=== PATIENT | female | born 1950 | race Caucasian/White ===

== ENCOUNTER 2017-08-21 07:48 | Inpatient (IN) | payer MEDICARE, BC ==
[~2017-08-21] VITALS: Ht 165.1 cm; Wt 51.3 kg
--- NOTE | 2017-08-21 07:55 | NUR ---
AAOX3 BIB C/O EPIGASTRIC PAIN SINCE LAST NIGHT, +NAUSEA BUT DENIES VOMITING/DIARRHEA. SKIN IS WARM AND DRY. RR IS EVEN AND UNLABORED WITH NAD NOTED. PLACED ON THE MONITOR. WILL CONTINUOUSLY MONITOR THE PATIENT. AWAITING MD FOR EVAL.
--- NOTE | 2017-08-21 08:20 | NUR ---
DR LOERA AT BS FOR EVAL.
[2017-08-21] MEDS ORDERED: ONDANSETRON HCL/PF 4 MG/2 ML VIAL ONE (08:28)
[2017-08-21] MEDS ORDERED: HYDROMORPHONE 1 MG/1 ML DISP.SYRIN ONE ×2 (08:29→10:30)
[2017-08-21] MEDS ORDERED: ONDANSETRON HCL/PF 4 MG/2 ML VIAL IVP ONE (08:30)
[2017-08-21] MEDS ORDERED: IV NS 0.9% 1,000 ML BAG IV ONE (08:30)
[2017-08-21] MEDS ORDERED: HYDROMORPHONE INJ 2 MG/ML DISP.SYRIN IV ONE (08:30)
[2017-08-21 08:46] LABS: BASOPHILS # (AUTO) 0.1 /CMM (0.0-0.2); BASOPHILS % (AUTO) 1.3 % (0.0-2.0); EOSINOPHILS # (AUTO) 0.2 /CMM (0.0-0.7); EOSINOPHILS % (AUTO) 1.9 % (0.0-6.0); HEMATOCRIT 47 % (33-45); HEMOGLOBIN 15.9 g/dL (11.5-14.8); LYMPHOCYTES # (AUTO) 1.4 /CMM (0.8-4.8); LYMPHOCYTES % (AUTO) 15.9 % (20.0-44.0); MEAN CORPUSCULAR HEMOGLOBIN 31 PG (26.0-33.0); MEAN CORPUSCULAR HGB CONC 34 g/dl (31.0-36.0); MEAN CORPUSCULAR VOLUME 91 fL (82-100); MONOCYTES # (AUTO) 0.5 /CMM (0.1-1.30); MONOCYTES % (AUTO) 5.4 % (2.0-12.0); NEUTROPHILS # (AUTO) 6.7 /CMM (1.8-8.9); NEUTROPHILS % (AUTO) 75.5 % (43.0-81.0); PLATELET COUNT (AUTO) 284 /CMM (150-450); RDW COEFFICIENT OF VARIATION 12.8 (11.5-15.0); RED BLOOD CELL COUNT(AUTO) 5.16 MIL/uL (4.0-5.2); WHITE BLOOD COUNT (AUTO) 8.9 K/uL (4.3-11.0)
[2017-08-21 08:58] LABS: TROPONIN I < 0.017 ng/mL (0.00-0.056)
[2017-08-21 09:09] LABS: ALANINE AMINOTRANSFERASE 37 U/L (12-78); ALBUMIN 4.1 g/dL (3.4-5.0); ALKALINE PHOSPHATASE 93 U/L (46-116); ASPARTATE AMINOTRANSFERASE 29 U/L (15-37); BILIRUBIN,TOTAL 0.4 mg/dL (0.2-1.0); CARBON DIOXIDE 25 mmol/L (21-32); CHLORIDE 102 mmol/L (98-107); CREATININE 0.9 mg/dL (0.6-1.3); GLUCOSE 104 mg/dL (74-106); LIPASE 168 U/L (73-393); POTASSIUM 4.5 mmol/L (3.5-5.1); SODIUM SERUM 138 mmol/L (136-145); TOTAL PROTEIN, SERUM 8.3 g/dL (6.4-8.2); UREA NITROGEN, BLOOD 12 mg/dL (7-18)
--- NOTE | 2017-08-21 10:06 | NUR ---
PANEL ON-CALL PAGED
[2017-08-21] MEDS ORDERED: IV NS 0.9% 1,000 ML IV PRN ×2 (10:12→22:00)
--- NOTE | 2017-08-21 10:23 | NUR ---
REPORT GIVEN TO ERIS OSMAN FOR EMMANUEL MS [id number]
[2017-08-21] MEDS ORDERED: OXYM5TAB PO (10:27)
[2017-08-21] MEDS ORDERED: MODA100T14 PO (10:27)
[2017-08-21] MEDS ORDERED: HYDR-548 PO (10:27)
[2017-08-21] MEDS ORDERED: IV NS 0.9% 1,000 ML IV ONE (10:30)
[2017-08-21] MEDS ORDERED: MAG HYDROX/AL HYDROX/SIMETH 30 ML UDC PO PRN (10:30)
[2017-08-21] MEDS ORDERED: HYDROCODONE/APAP 5/325MG 1 EACH TABLET PO PRN (10:30)
[2017-08-21] MEDS ORDERED: ZOLPIDEM TARTRATE 5 MG TABLET PO PRN (10:30)
[2017-08-21] MEDS ORDERED: MAGNESIUM HYDROXIDE 30 ML UDC PO PRN (10:30)
[2017-08-21] MEDS ORDERED: ACETAMINOPHEN 325 MG TABLET PO PRN (10:30)
[2017-08-21] MEDS ORDERED: ENOXAPARIN SODIUM 40 MG/0.4 ML DISP.SYRIN SQ SCH (10:30)
[2017-08-21] MEDS ORDERED: HYDROMORPHONE 1 MG/1 ML DISP.SYRIN IV ONE (10:30)
[2017-08-21] MEDS ORDERED: Z GUARD REMEDY 2 OZ OINT TP PRN (10:30)
[2017-08-21] MEDS ORDERED: MORPHINE SULFATE INJ 2 MG/ML DISP.SYRIN IV PRN (10:30)
--- NOTE | 2017-08-21 11:00 | NUR ---
MS RN OPENING NOTES RECEIVED PATIENT IN STABLE CONDITION. IN NO APPARENT DISTRESS. CALL LIGHT IS WITHIN REACH. BEDSIDE RAILS ARE UP X2 . BED IS LOCKED AND LOWERED. WILL CONTINUE TO MONITOR.
[2017-08-21] MEDS: MORPHINE SULFATE INJ 4 MG/ML DISP.SYRIN IV PRN (11:21)
[2017-08-21] MEDS: ONDANSETRON HCL/PF 4 MG/2 ML VIAL IVP PRN ×2 (12:00→23:21)
[2017-08-21] MEDS ORDERED: HYDROMORPHONE 1 MG/1 ML DISP.SYRIN IV PRN (14:00)
[2017-08-21 15:31] LABS: CALCIUM, SERUM 9.5 mg/dL (8.5-10.1)
[2017-08-21 16:00] VITALS: BP 133/79
[2017-08-21] MEDS: LORAZEPAM INJ 2 MG/ML VIAL IV PRN (16:39)
[2017-08-21 17:11] LABS: MEAN CORPUSCULAR VOLUME 91 fL (82-100); MONOCYTES # (AUTO) 0.1 /CMM (0.1-1.30)
[2017-08-21 17:13] LABS: BASOPHILS % (AUTO) 0.1 % (0.0-2.0); EOSINOPHILS # (AUTO) 0.1 /CMM (0.0-0.7); EOSINOPHILS % (AUTO) 0.4 % (0.0-6.0); HEMATOCRIT 52 % (33-45); HEMOGLOBIN 17.4 g/dL (11.5-14.8); LYMPHOCYTES # (AUTO) 0.5 /CMM (0.8-4.8); LYMPHOCYTES % (AUTO) 3.3 % (20.0-44.0); MEAN CORPUSCULAR HEMOGLOBIN 30 PG (26.0-33.0); MEAN CORPUSCULAR HGB CONC 33 g/dl (31.0-36.0); MONOCYTES % (AUTO) 0.7 % (2.0-12.0); NEUTROPHILS # (AUTO) 13.2 /CMM (1.8-8.9); NEUTROPHILS % (AUTO) 95.5 % (43.0-81.0); PLATELET COUNT (AUTO) 225 /CMM (150-450); RDW COEFFICIENT OF VARIATION 12.6 (11.5-15.0); RED BLOOD CELL COUNT(AUTO) 5.73 MIL/uL (4.0-5.2); WHITE BLOOD COUNT (AUTO) 13.8 K/uL (4.3-11.0)
[2017-08-21 17:21] LABS: CARBON DIOXIDE 25 mmol/L (21-32); CHLORIDE 105 mmol/L (98-107); CREATININE 0.8 mg/dL (0.6-1.3); GLUCOSE 110 mg/dL (74-106); POTASSIUM 4.3 mmol/L (3.5-5.1); SODIUM SERUM 141 mmol/L (136-145); UREA NITROGEN, BLOOD 12 mg/dL (7-18)
--- NOTE | 2017-08-21 19:00 | NUR ---
MS RN CLOSING NOTES PATIENT IS RESTING IN BED. IN NO APPARENT DISTRESS. VITAL SIGNS ARE WNL. BEDSIDE RAILS ARE UP X2 . BED IS LOCKED AND LOWERED. WILL ENDORSE CARE TO RANGE RIDER NURSE FOR EMMANUEL.
--- NOTE | 2017-08-21 19:30 | NUR ---
MS RN NOTES RECEIVED ON BED A/O X3,DROWSY FROM ATIVAN 1MG IV AT 1639,BREATHING REGULAR, NOT IN ANY FORM OF DISTRESS.FALL PRECAUTION OBSERVED,BED ALARM TRIGGERED,BED ON LOW POSITION AND LOCK.CALL LIGHT IN REACH,NEEDS ANTICIPATED.
[2017-08-21 20:00] VITALS: BP 134/83
--- NOTE | 2017-08-21 20:00 | NUR ---
MS RN NOTES MD VISIT SEEN AND EXAMINED BY DR SWEET,WITH NEW ORDERS NOTED AND CARRIED OUT.
[2017-08-21] MEDS ORDERED: IV NS 0.9% 500 ML IV ONE (20:30)
--- NOTE | 2017-08-21 21:30 | NUR ---
MS RN NOTES IV NS BOLUS COMPLETED.NO SOB NOTED.VITALS AT 2239 ARE FOLLOWS BP-139/77,PULSE-122,RR-18,ORAL TEMP-98.2,O2 SAT 95% ON ROOM AIR.DR MICKI LILLY.
--- NOTE | 2017-08-21 21:45 | NUR ---
MS RN NOTES NS 500ML BOLUS STARTED ORDERED Addendum: 08/21/17 at 2330 by NOEMI STEWART RN ABOVE IV BOLUS STARTED AT 2030
--- NOTE | 2017-08-21 22:33 | NUR ---
MS RN NOTES EKG,CHEST X-RAY IN THE MORNING FOR POSSIBLE SURGERY TOMORROW.DR SWEET WILL CALL REGARDING PLAN.
--- NOTE | 2017-08-21 22:33 | NUR ---
MS RN NOTES DR SWEET CALLED,CHARGE NURSE SONYA SPOKE TO HIM WITH ORDERS NOTED AND CARRIED OUT.
[2017-08-21 22:39] VITALS: BP 139/77
[2017-08-21 22:43] VITALS: BP 139/77
[2017-08-21] MEDS ORDERED: VANCOMYCIN 1 GM VIAL ONE (22:45)
[2017-08-21] MEDS ORDERED: PIPERACILLIN /TAZOBACTAM 3.375 G VIAL IV ONE (22:45)
[2017-08-21] MEDS ORDERED: VANCOMYCIN 1 GM in IV D5W 250 ML IV SCH ×2 (23:00→23:30)
--- NOTE | 2017-08-21 23:21 | NUR ---
MS RN NOTES VOMITED BLACK COLOR VOMITUS ABOUT 175ML.ZOFRAN 4IV GIVEN ORDERED.
--- NOTE | 2017-08-21 23:33 | NUR ---
MS RN NOTES NPO STATUS.STARTED ON VANCOMYCIN 1 GM IVPB X 1 DOSE ORDERED.
[2017-08-22] VITALS (37 sets, daily range): BP systolic 86–138; BP diastolic 53–91
[2017-08-22] MEDS: PIPERACILLIN /TAZOBACTAM 3.375 G in IV D5W 50 ML IV SCH ×4 (00:01→17:42)
[2017-08-22] MEDS: MORPHINE SULFATE INJ 4 MG/ML DISP.SYRIN IV PRN ×2 (00:42→04:42)
[2017-08-22 01:53] LABS: BASOPHILS % (AUTO) 0.1 % (0.0-2.0); EOSINOPHILS % (AUTO) 0.4 % (0.0-6.0); HEMATOCRIT 48 % (33-45); HEMOGLOBIN 16.8 g/dL (11.5-14.8); LYMPHOCYTES # (AUTO) 0.6 /CMM (0.8-4.8); LYMPHOCYTES % (AUTO) 8.1 % (20.0-44.0); MEAN CORPUSCULAR HEMOGLOBIN 31 PG (26.0-33.0); MEAN CORPUSCULAR HGB CONC 35 g/dl (31.0-36.0); MEAN CORPUSCULAR VOLUME 90 fL (82-100); MONOCYTES # (AUTO) 0.4 /CMM (0.1-1.30); MONOCYTES % (AUTO) 5.3 % (2.0-12.0); NEUTROPHILS # (AUTO) 6.3 /CMM (1.8-8.9); NEUTROPHILS % (AUTO) 86.1 % (43.0-81.0); PLATELET COUNT (AUTO) 310 /CMM (150-450); RED BLOOD CELL COUNT(AUTO) 5.36 MIL/uL (4.0-5.2); WHITE BLOOD COUNT (AUTO) 7.3 K/uL (4.3-11.0)
[2017-08-22 02:05] LABS: CALCIUM, SERUM 8.2 mg/dL (8.5-10.1); CARBON DIOXIDE 26 mmol/L (21-32); CHLORIDE 105 mmol/L (98-107); CREATININE 0.9 mg/dL (0.6-1.3); GLUCOSE 166 mg/dL (74-106); POTASSIUM 3.8 mmol/L (3.5-5.1); SODIUM SERUM 141 mmol/L (136-145); UREA NITROGEN, BLOOD 15 mg/dL (7-18)
[2017-08-22 02:09] LABS: MAGNESIUM 1.7 mg/dL (1.8-2.4); PHOSPHORUS 3.9 mg/dL (2.5-4.9)
--- NOTE | 2017-08-22 02:30 | NUR ---
MS RN NOTES ST 130 ON TELE MONITOR THIS TIME.PATIENT ASLEEP.
--- NOTE | 2017-08-22 02:30 | NUR ---
MS RN NOTES NEW SALINE LOCK PLACE ON LEFT FOREARM # 22,IVF INFUSING.
--- NOTE | 2017-08-22 02:35 | NUR ---
MS RN NOTES REPORTED BY TRANSPORTATION SECURITY OFFICER TO CHARGE NURSE SONYA,LACTIC ACID 2.4,JOBY DURBIN ACNP MADE AWARE AND CALL BACK. WITH ORDER TO REPEAT LACTIC ACID AT 6 AM.CONTINUE PRESENT IVF
--- NOTE | 2017-08-22 03:00 | NUR ---
OPERATIVE SUPERVISOR NOTES DR SWEET CALLED.MADE AWARE OF PATIENT STATUS ESPECIALLY HIGH HEART RATE AND VOMITUS.WITH ORDER TO TRANSFER PATIENT TO ICU FOR FURTHER CARE AND MANAGEMENT.
--- NOTE | 2017-08-22 03:05 | NUR ---
MS RN NOTES DR SWEET CALLED NURSING CUTTING ROOM SUPERVISOR FOR TRANSFER,WITH ROOM 255.
--- NOTE | 2017-08-22 03:30 | NUR ---
HOSPITAL RECEPTIONIST NOTES TRANSFERRED TO ICU VIA ACLS PROTOCOL ROOM 255.REPORT GIVEN TO ARCELIA SCHULTE.
--- NOTE | 2017-08-22 03:30 | NUR ---
BOX OFFICE CLERK PT TRANSFERRED FROM BY NOEMI SCHULTE. PT IS A/A/O X3, EXHIBITING ANXIETY. PT IS ON O2 2L NC. LUNG SOUNDS CLEAR. BOWEL SOUNDS ABSENT, VERIFIED BY TWO RN'S. INCONTINENT. IV PATENT AND INTACT. BED IN LOW LOCKED POSITION. CALL LIGHT WITHIN REACH. WILL CONTINUE TO CLOSELY MONITOR.
--- NOTE | 2017-08-22 04:10 | NUR ---
SENIOR PROGRAM ANALYST KRUEGER ORDER RECEIVED. KRUEGER INSERTED.
[2017-08-22] MEDS ORDERED: PIPERACILLIN /TAZOBACTAM 3.375 G VIAL IV ONE (04:59)
[2017-08-22] MEDS: ONDANSETRON HCL/PF 4 MG/2 ML VIAL IVP PRN (05:35)
--- NOTE | 2017-08-22 06:44 | NUR ---
BARREL BANDER RECEIVED CALL FROM DR ZEPEDA TO INSERT NGT PRIOR TO OR. EXPLAINED TO PT THE NEED FOR A NGT, PT REFUSED. SAYS SHE WANTS TO SEE THE DOCTOR AND WOULD PREFER BEING ASLEEP. PT STATES SHE HAS ALOT OF SINUS PROBLEMS AND IS REFUSING THE NGT AT THIS TIME. WILL ENDORSE TO ONCOMING STAFF.
[2017-08-22] MEDS ORDERED: ANESTHESIA TRAY IN PYXIS 1 EA TRAY MC ONE (07:40)
--- NOTE | 2017-08-22 07:45 | NUR ---
PATIENT SEEN AWAKE AND ORIENTED. SURGEON AND ANESTHESIOLOGIST AT BEDSIDE-SPEAKING TO PATIENT REGARDING PROCEDURE-FOR EXPLOR LAP WITH POSSIBLE BOWEL RESECTION. PATIENT AGREED TO NGT INSERTION-ATTEMPTED PLACEMENT-VERIFIED WITH PLACEMENT IN STOMACH WITH AUSCULTATION-UNABLE TO VERIFY PLACEMENT BY GUTIERREZ, MILLING MACHINE SET UP OPERATOR. CONNECTED TO LOW SUCTION WITH NO GASTRIC RESIDUALS NOTED. WIL,SOFA BACK UPHOLSTERER HERE TO FOLDED CLOTH TAPER PATIENT TO OR. MADE AWARE ABOUT NGT-STATED THAT PLACEMENT WILL BE VERIFIED IN OR.
[2017-08-22] MEDS ORDERED: HYDROMORPHONE INJ 2 MG/ML DISP.SYRIN ONE (07:50)
[2017-08-22] MEDS ORDERED: SUCCINYLCHOLINE CHLORIDE 20 MG/ML VIAL ONE (07:50)
[2017-08-22] MEDS ORDERED: ROCURONIUM BROMIDE 50 MG/5 ML ONE (07:51)
--- NOTE | 2017-08-22 07:55 | NUR ---
PATIENT TO OR.
--- NOTE | 2017-08-22 08:30 | NUR ---
WIL FROM OR CALLED AND STATED THAT NGT PLACEMENT IN STOMACH-VERIFIED BY DR. NATHAN-SOCIAL SECURITY BENEFITS INTERVIEWER.
[2017-08-22] MEDS ORDERED: MIDAZOLAM HCL 2 MG/2ML VIAL ONE (08:32)
[2017-08-22] MEDS ORDERED: FEE PK DOSING 1 MIN EA MC ONE (08:34)
[2017-08-22] MEDS ORDERED: BUPIVACAINE 0.5 % PF 150 MG/30 ML VIAL ONE (09:20)
--- NOTE | 2017-08-22 10:15 | NUR ---
PATIENT RECEIVED FROM LICENSED LIFE AND HEALTH AGENT-S/P EXPLOR LAP , LYSIS OF ADHESIONS. EASILY AROUSABLE TO NAME AND TOUCH. SR 90'S ON MONITOR. SBP>100. MIDLINE INCISION COVERED WITH ABDOMINAL BINDER, NO SIGNS OF BLEEDING NOTED. AFEBRILE. POST OP ORDERS CARRRIED OUT.
--- NOTE | 2017-08-22 10:16 | NUR ---
Patient in surgery as advised by attending nurse (Cherry), 8:55am
--- NOTE | 2017-08-22 10:30 | NUR ---
NGT CONNECTED TO LOW SUCTION-MINIMAL BROWNISH OUTPUT.
[2017-08-22] MEDS: Magnesium 1GM/D5W 100ML PREMIX 100 ML IV SCH ×2 (10:32→11:31)
[2017-08-22] MEDS: PANTOPRAZOLE 40 MG VIAL IV SCH (10:32)
[2017-08-22] MEDS: VANCOMYCIN 0.75 GM in IV D5W 250 ML IV SCH ×2 (10:33→22:38)
[2017-08-22] MEDS ORDERED: HYDROCODONE/APAP 7.5/325MG 1 EACH TABLET PO PRN (11:00)
[2017-08-22] MEDS: IV LR 1000 ML 1,000 ML IV PRN ×2 (11:29→22:38)
[2017-08-22] MEDS: HYDROMORPHONE 1 MG/1 ML DISP.SYRIN IV PRN ×2 (11:56→22:24)
--- NOTE | 2017-08-22 12:00 | NUR ---
PATIENT DOZING ON AND OFF. MOANING AT TIMES-DILAUDID 1 MG IVP GIVEN ORDERED PRN. BP REMAINS STABLE.
--- NOTE | 2017-08-22 14:00 | NUR ---
2D ECHO DONE. NO VERBAL COMPLAINTS OF PAIN AT THIS TIME.
--- NOTE | 2017-08-22 18:00 | NUR ---
VITAL SIGNS STABLE. STILL DOZING INTERMITENTLY. AFEBRILE. NGT WITH MINIMAL BROWNISH OUTPUT CONNECTED TO LIWS. MAINTAINED NPO AT THIS TIME. NO SIGNS OF BLEEDING AT SURGICAL SITE.
--- NOTE | 2017-08-22 19:20 | NUR ---
REGIONAL TRAINING MANAGER INITIAL NOTE RECEIVED REPORT FROM NAMRATA SCHULTE. PT IN BED. SLEEPING BUT EASILY AROUSABLE. PT IS A/O X4. LUNG SOUNDS CLEAR. BOWEL SOUNDS HYPOACTIVE FOLLOWING EXPLORATORY LAPAROTOMY BY DR ZEPEDA. ABDOMINAL BINDER INTACT, NO BLEEDING NOTED. LEFT NARE NGT INTACT CONNECTED TO LIS WITH MINIMAL OUTPUT. KRUEGER INTACT AND DRAINING FERNANDO URINE. IV PATENT AND INTACT. PULSES PRESENT. PT REPOSITIONED FOR COMFORT. BED IN LOW LOCKED POSITION. CALL LIGHT WITHIN REACH. WILL CONTINUE TO MONITOR.
[2017-08-23] VITALS (15 sets, daily range): BP systolic 96–123; BP diastolic 56–86
[2017-08-23] MEDS: PIPERACILLIN /TAZOBACTAM 3.375 G in IV D5W 50 ML IV SCH ×4 (00:02→17:17)
[2017-08-23] MEDS: HYDROMORPHONE 1 MG/1 ML DISP.SYRIN IV PRN ×9 (01:31→21:57)
[2017-08-23 04:43] LABS: BASOPHILS % (AUTO) 0.4 % (0.0-2.0); EOSINOPHILS # (AUTO) 0.2 /CMM (0.0-0.7); HEMATOCRIT 35 % (33-45); HEMOGLOBIN 12.1 g/dL (11.5-14.8); LYMPHOCYTES # (AUTO) 0.7 /CMM (0.8-4.8); LYMPHOCYTES % (AUTO) 9.1 % (20.0-44.0); MEAN CORPUSCULAR HEMOGLOBIN 32 PG (26.0-33.0); MEAN CORPUSCULAR HGB CONC 35 g/dl (31.0-36.0); MEAN CORPUSCULAR VOLUME 91 fL (82-100); MONOCYTES # (AUTO) 0.4 /CMM (0.1-1.30); MONOCYTES % (AUTO) 5.6 % (2.0-12.0); NEUTROPHILS # (AUTO) 6.5 /CMM (1.8-8.9); NEUTROPHILS % (AUTO) 82.9 % (43.0-81.0); PLATELET COUNT (AUTO) 206 /CMM (150-450); RDW COEFFICIENT OF VARIATION 13.4 (11.5-15.0); RED BLOOD CELL COUNT(AUTO) 3.85 MIL/uL (4.0-5.2); WHITE BLOOD COUNT (AUTO) 7.9 K/uL (4.3-11.0)
[2017-08-23 05:05] LABS: BILIRUBIN,TOTAL 0.6 mg/dL (0.2-1.0); CREATININE 0.9 mg/dL (0.6-1.3); MAGNESIUM 2.2 mg/dL (1.8-2.4); PHOSPHORUS 2.6 mg/dL (2.5-4.9); POTASSIUM 4.2 mmol/L (3.5-5.1); TOTAL PROTEIN, SERUM 5.5 g/dL (6.4-8.2)
--- NOTE | 2017-08-23 07:15 | NUR ---
HEALTH PROFESSOR RECEIVED PATIENT AWAKE SITTING ON BED WITH ON GOING IVF ON ROOM AIR SATURATING 95% NO DYSPNEA NOTED PLACED ON NPO WITH NGT CONNECTED TO LOW INTERMITTENT SUCTIONING DRAINING TO BROWNISH SECRETION 10 ML AMOUNT WITH MID ABDOMINAL INCISION, DRESSING DRY AND INTACT PAIN NOTED, PAIN MEDICATION GIVEN PRN KRUEGER CATHETER DRAINING TO YELOOWISH URINE MODERATE IN AMOUNT
[2017-08-23] MEDS: PANTOPRAZOLE 40 MG VIAL IV SCH (07:46)
[2017-08-23] MEDS: IV D5/ 0.9% NACL 1,000 ML IV PRN (08:09)
--- NOTE | 2017-08-23 10:05 | NUR ---
DIRECTOR OF STRATEGIC PROGRAMS SEEN EARLIER BY KATHY DIAZ AND MICKI WITH NEW ORDERS MADE AND CARRIED OUT KRUEGER CATHETER REMOVED AND NGT REMOVED WELL MONITORED CLOSELY ASSISTED PATIENT TO AMBULATE IN THE ROOM PAIN OVER HER ABDOMEN WHEN WALKING
--- NOTE | 2017-08-23 10:15 | NUR ---
MS CLINIC SUPERVISOR NOTES received report from ICU nurse, patient is alert and oriented x 4, verbally responsive and able to make needs known. No complaint of pain or discomfort noted. No SOB or distress noted. Patient IV intact and patent. In stable condition at this time. Will continue to monitor.
[2017-08-23] MEDS: VANCOMYCIN 0.75 GM in IV D5W 250 ML IV SCH ×2 (11:09→23:28)
--- NOTE | 2017-08-23 18:30 | NUR ---
ms rn notes dr. Ortiz on site came seen the patient and informed regarding patient if he wants to keep patient NPO and per MD to start patient on clear liquid diet. All orders carried out and noted.
--- NOTE | 2017-08-23 19:18 | NUR ---
ms rn closing notes All needs provided, attended, and anticipated. Kept patient clean and comfortable in bed, call light with in patient reach, endorsed to next shift RN to continue care.
--- NOTE | 2017-08-23 19:20 | NUR ---
MS/RN OPENING NOTES PT RECEIVED SITTING UP IN BED, HOB ELEVATED. ON 2L O2 VIA NC, BREATHING EVEN AND UNLABORED. DOZING INTERMITTENTLY. A/OX4. IN NO APPARENT DISTRESS. NO S/S OF SOB OR PAIN NOTED. APPEARS COMFORTABLE. PT WITH ABDOMINAL BINDER IN PLACE. LFA IV RUNNING IVF ORDERED. NO S/S OF INFILTRATION NOTED. BED IN LOW/LOCKED POSITION WITH CALL LIGHT IN REACH. SIDE RAILS UPX2. WILL CONTINUE TO MONITOR
[2017-08-23] MEDS ORDERED: VANCOMYCIN 1 GM VIAL ONE (23:15)
--- NOTE | 2017-08-23 23:32 | NUR ---
MS/RN NOTES SCHEDULED VANCOMYCIN NOT IN PATIENT'S CASSETTE. CALLED ICU, NOT THERE EITHER. ORACLE APPLICATIONS DEVELOPER OVERRODE 1G OF VANCO IN 250ML D5W. PREMIXED 0.75G AND VERIFIED DOSING WITH ANOTHER RN. ADMINISTERED ORDERED.
[2017-08-24 00:30] VITALS: BP 118/73
[2017-08-24] MEDS: PIPERACILLIN /TAZOBACTAM 3.375 G in IV D5W 50 ML IV SCH ×4 (00:34→17:34)
[2017-08-24] MEDS: HYDROMORPHONE 1 MG/1 ML DISP.SYRIN IV PRN ×5 (00:40→20:22)
[2017-08-24 06:25] LABS: BASOPHILS % (AUTO) 0.2 % (0.0-2.0); EOSINOPHILS # (AUTO) 0.5 /CMM (0.0-0.7); EOSINOPHILS % (AUTO) 5.2 % (0.0-6.0); HEMATOCRIT 36 % (33-45); HEMOGLOBIN 12.2 g/dL (11.5-14.8); MEAN CORPUSCULAR HEMOGLOBIN 32 PG (26.0-33.0); MEAN CORPUSCULAR HGB CONC 34 g/dl (31.0-36.0); MEAN CORPUSCULAR VOLUME 92 fL (82-100); MONOCYTES # (AUTO) 0.5 /CMM (0.1-1.30); MONOCYTES % (AUTO) 5.6 % (2.0-12.0); NEUTROPHILS # (AUTO) 7.5 /CMM (1.8-8.9); PLATELET COUNT (AUTO) 206 /CMM (150-450); RED BLOOD CELL COUNT(AUTO) 3.87 MIL/uL (4.0-5.2); WHITE BLOOD COUNT (AUTO) 9.6 K/uL (4.3-11.0)
--- NOTE | 2017-08-24 06:28 | NUR ---
MS/RN NOTES PT MOVED TO 321-1 BELONGINGS MOVED WITH PT
[2017-08-24] MEDS: IV D5/ 0.9% NACL 1,000 ML IV PRN (06:35)
[2017-08-24 06:44] LABS: ALBUMIN 2.3 g/dL (3.4-5.0); BILIRUBIN,TOTAL 0.3 mg/dL (0.2-1.0); CALCIUM, SERUM 8.4 mg/dL (8.5-10.1); CREATININE 0.8 mg/dL (0.6-1.3); MAGNESIUM 1.9 mg/dL (1.8-2.4); POTASSIUM 3.7 mmol/L (3.5-5.1); TOTAL PROTEIN, SERUM 6.1 g/dL (6.4-8.2)
--- NOTE | 2017-08-24 07:15 | NUR ---
MS/RN CLOSING NOTES PT DOZING INTERMITTENTLY. HOB ELEVATED. A/OX4. ON 2L O2 VIA NC, BREATHING EVEN AND UNLABORED. NO C/O OF SOB, PT APPEARS COMFORTABLE AT THIS TIME. IV TO LFA PATENT AND INTACT RUNNING IVF ORDERED. ENCOURAGED AMBULATION DURING SHIFT HOWEVER PT WANTED TO REST. PAIN MANAGED. ABDOMINAL BINDER REMAINS IN PLACE. ASSISTED WITH REPOSITIONING PRN. MADE PT COMFORTABLE POSSIBLE, ALL NEEDS MET. PT NOT PASSING GAS AND WITH NO BM YET. BED IN LOW/LOCKED POSITION WITH CALL LIGHT IN REACH. SIDE RAILS UPX2. ENDORSED TO DAY SHIFT RN EMMANUEL.
[2017-08-24 07:19] LABS: BAND % (MANUAL) 3 % (0.0-5.0); EOSINOPHILS % (MANUAL) 6 % (0-4); LYMPHOCYTES % (MANUAL) 8 % (16-48); MONOCYTES % (MANUAL) 9 % (0-11.0); NEUTROPHILS % (MANUAL) 74 (42-76)
--- NOTE | 2017-08-24 07:25 | NUR ---
ms rn initial notes Received patient in bed, asleep, head of bed elevated, no SOB or distress noted, on room air. Patient is alert and oriented x 4, verbally responsive and able to make needs known. IV intact and patent with IVF infusing well. kept patient clean and comfortable in bed, call light with in patient reach, will continue to monitor accordingly.
[2017-08-24 08:00] VITALS: BP 117/67
[2017-08-24] MEDS: PANTOPRAZOLE 40 MG VIAL IV SCH (08:27)
[2017-08-24] MEDS ORDERED: HYDROCODONE/APAP 5/325MG 1 EACH TABLET PO PRN (10:30)
[2017-08-24] MEDS ORDERED: NEUTRA PHOS 1 POWD.PACKET PO ONE (13:00)
[2017-08-24] MEDS: VANCOMYCIN 0.75 GM in IV D5W 250 ML IV SCH ×2 (13:15→22:33)
[2017-08-24] MEDS: ONDANSETRON HCL/PF 4 MG/2 ML VIAL IVP PRN (14:28)
[2017-08-24 16:00] VITALS: BP 124/69
[2017-08-24] MEDS: PROMETHAZINE HCL 25 MG/ML AMPUL IM PRN (16:45)
[2017-08-24] MEDS: DOCUSATE SODIUM 100 MG CAPSULE PO SCH (16:52)
--- NOTE | 2017-08-24 16:52 | NUR ---
MS RN NOTES Patient refused taking her colace due to nauseated MD made aware. Will continue to monitor accordingly.
[2017-08-24 19:38] VITALS: BP 115/70
[2017-08-24 22:00] VITALS: BP 115/70
[2017-08-25] MEDS: PIPERACILLIN /TAZOBACTAM 3.375 G in IV D5W 50 ML IV SCH ×3 (00:02→10:31)
[2017-08-25] MEDS: PROMETHAZINE HCL 25 MG/ML AMPUL IM PRN ×3 (00:09→08:22)
[2017-08-25] MEDS: HYDROMORPHONE 1 MG/1 ML DISP.SYRIN IV PRN ×4 (00:10→20:20)
--- NOTE | 2017-08-25 06:41 | NUR ---
ms rn closing notes All needs provided, attended, and anticipated. Pain management provided. Kept patient clean and comfortable in bed, call light with in patient reach, endorsed to next shift RN to continue care.
--- NOTE | 2017-08-25 07:40 | NUR ---
MS/RN OPENING NOTE PATIENT IN BED IN STABLE CONDITION. A/O X 4. NO SIGNS OF ACUTE DISTRESS. NO COMPLAIN OF PAIN OR DISCOMFORT. ALL NEEDS ATTENDED TO. CALL LIGHT WITHIN REACH. WILL CONTINUE TO MONITOR TO ENSURE SAFETY.
[2017-08-25 07:44] LABS: CALCIUM, SERUM 8.1 mg/dL (8.5-10.1); CREATININE 0.8 mg/dL (0.6-1.3); PHOSPHORUS 2.7 mg/dL (2.5-4.9); POTASSIUM 3.2 mmol/L (3.5-5.1)
[2017-08-25 08:00] VITALS: BP 129/82
[2017-08-25] MEDS: DOCUSATE SODIUM 100 MG CAPSULE PO SCH ×2 (08:22→16:16)
[2017-08-25] MEDS: POTASSIUM CHLORIDE 20 MEQ TAB.PRT.SR PO SCH ×2 (08:22→09:00)
[2017-08-25] MEDS: PANTOPRAZOLE 40 MG VIAL IV SCH (08:22)
[2017-08-25] MEDS ORDERED: POTASSIUM CL. PREMIX PERIPHER. 50 ML IV SCH (11:00)
[2017-08-25] MEDS: POTASSIUM CL. PREMIX PERIPHER. 50 ML IV SCH ×4 (11:30→18:45)
[2017-08-25] MEDS: VANCOMYCIN 0.75 GM in IV D5W 250 ML IV SCH (12:38)
[2017-08-25 16:00] VITALS: BP 136/89
[2017-08-25] MEDS: ONDANSETRON HCL/PF 4 MG/2 ML VIAL IVP PRN (16:16)
--- NOTE | 2017-08-25 17:32 | NUR ---
MS/RN CT ABDOMEN/PELVIS INFORMED RESULTS FOR CT ABDOMEN/PELVIS TO BRISEYDA HEMPHILL WITH NO ORDERS AT THIS TIME.
--- NOTE | 2017-08-25 18:24 | NUR ---
MS/RN CLOSING NOTE PATIENT IN BED IN STABLE CONDITION. A/O X 4. NO SIGNS OF ACUTE DISTRESS. NO COMPLAIN OF PAIN OR DISCOMFORT. PER PT OKAY TO WALK PATIENT WITH WALKER AND PHOTO STUDIO ASSISTANT. NPO STATUS AT THIS TIME SECONDARY TO PATIENT C/O OF NAUSEA. ALL NEEDS ATTENDED TO. CALL LIGHT WITHIN REACH. WILL ENDORSE TO NEXT SHIFT FOR CONTINUITY OF CARE.
[2017-08-25 20:00] VITALS: BP 154/83
--- NOTE | 2017-08-25 20:00 | NUR ---
MSRN VERBALIZES POST OP PAIN, DILAUDED 1MG IVP ADMIISTERED. BEDREST EMPHASIZED, REMINDED TO CALL STAFF FOR ANY ASSISTANCE OR FURTHER DISCOMFORTS, CALL LIGHT WITHIN REACH.CLOSELY WATCHED.
--- NOTE | 2017-08-25 22:15 | NUR ---
MSRN SEEN BY DR. SWEET, TOOK OFF DRESSING AND ABDOMINAL BINDER, INSTRUCTED PATIENT TO USE ABD BINDER WHEN OOB AND MAY LEAVE INCISION OPEN TO AIR. REGLAN IVP TO START.CONTINUED
--- NOTE | 2017-08-25 22:30 | NUR ---
MSRN INCISION SITE CLEANSED WITH BETADINE, LEFT OPEN TO AIR. PATIENT INSTRUCTED. IVF CONTINUED
[2017-08-25] MEDS ORDERED: METOCLOPRAMIDE HCL 10 MG/2 ML VIAL ONE (22:32)
[2017-08-25] MEDS: IV D5/ 0.9% NACL 1,000 ML IV PRN (22:50)
[2017-08-25] MEDS: METOCLOPRAMIDE HCL 10 MG/2 ML VIAL IV SCH (22:50)
--- NOTE | 2017-08-26 04:30 | NUR ---
MSRN SEEN AMBULATING AROUND HALLWAYS WITH OVERNIGHT ASSOCIATE. NAUSEATED, NO EMESIS. WENT TO RESTROOM NO BM YET.
[2017-08-26] MEDS ORDERED: METOCLOPRAMIDE HCL 10 MG/2 ML VIAL ONE (05:59)
[2017-08-26] MEDS: IV D5/ 0.9% NACL 1,000 ML IV PRN (06:19)
[2017-08-26] MEDS: METOCLOPRAMIDE HCL 10 MG/2 ML VIAL IV SCH ×3 (06:19→20:38)
--- NOTE | 2017-08-26 06:30 | NUR ---
LIZETT FREY ADMINISTERED IVF CONTINUED.
--- NOTE | 2017-08-26 07:47 | NUR ---
MS/RN OPENING NOTE PATIENT IN BED IN STABLE CONDITION. A/O X 3. NO SIGNS OF ACUTE DISTRESS. NO COMPLAIN OF PAIN, STILL COMPLAINING OF NAUSEA AT THIS TIME. ANTI EMETICS, REGLAN IV PUSH WAS ADMINISTERED AROUND 6AM. NPO STATUS AT THIS TIME SECONDARY TO FEELING NAUSEATED. ALL NEEDS ATTENDED TO. CALL LIGHT WITHIN REACH. WILL CONTINUE TO MONITOR TO ENSURE SAFETY.
[2017-08-26 07:49] LABS: EOSINOPHILS # (AUTO) 0.3 /CMM (0.0-0.7); EOSINOPHILS % (AUTO) 2.1 % (0.0-6.0); HEMATOCRIT 38 % (33-45); HEMOGLOBIN 13.1 g/dL (11.5-14.8); LYMPHOCYTES % (AUTO) 8.5 % (20.0-44.0); MEAN CORPUSCULAR HEMOGLOBIN 31 PG (26.0-33.0); MEAN CORPUSCULAR HGB CONC 35 g/dl (31.0-36.0); MEAN CORPUSCULAR VOLUME 91 fL (82-100); MONOCYTES # (AUTO) 0.5 /CMM (0.1-1.30); NEUTROPHILS # (AUTO) 10.5 /CMM (1.8-8.9); NEUTROPHILS % (AUTO) 85.4 % (43.0-81.0); PLATELET COUNT (AUTO) 313 /CMM (150-450); RDW COEFFICIENT OF VARIATION 12.3 (11.5-15.0); RED BLOOD CELL COUNT(AUTO) 4.15 MIL/uL (4.0-5.2); WHITE BLOOD COUNT (AUTO) 12.3 K/uL (4.3-11.0)
[2017-08-26 08:00] VITALS: BP 129/80
[2017-08-26 08:13] LABS: CALCIUM, SERUM 8.2 mg/dL (8.5-10.1); CREATININE 0.8 mg/dL (0.6-1.3); MAGNESIUM 1.8 mg/dL (1.8-2.4); PHOSPHORUS 2.6 mg/dL (2.5-4.9); POTASSIUM 3.2 mmol/L (3.5-5.1)
[2017-08-26] MEDS: DOCUSATE SODIUM 100 MG CAPSULE PO SCH ×2 (08:40→16:48)
[2017-08-26] MEDS: PANTOPRAZOLE 40 MG VIAL IV SCH (08:40)
[2017-08-26] MEDS: ONDANSETRON HCL/PF 4 MG/2 ML VIAL IVP PRN (11:51)
[2017-08-26] MEDS: POTASSIUM CL. PREMIX PERIPHER. 50 ML IV SCH ×4 (13:07→20:38)
[2017-08-26] MEDS: HYDROMORPHONE 1 MG/1 ML DISP.SYRIN IV PRN ×2 (14:57→20:46)
[2017-08-26 16:23] VITALS: BP 130/74
--- NOTE | 2017-08-26 18:12 | NUR ---
MS/RN CLOSING NOTE PATIENT IN BED IN STABLE CONDITION. A/O X 4. NO SIGNS OF ACUTE DISTRESS.NO COMPLAIN OF PAIN OR DISCOMFORT. POTASSIUM 10MEQ IVPB REMAINING TO HANG, WILL ENDORSE TO NEXT SHIFT SECONDARY TO PATIENT TRYING TO AMBULATE DURING DAY TIME, AND RUNNING THE RATE FOR POTASSIUM LOW SINCE PATIENT COMPLAIN OF PAIN AT IV SITE. NO INFILTRATION, REDNESS, OR SWELLING NOTED. ALL NEEDS ATTENDED TO. CALL LIGHT WITHIN REACH. WILL ENDORSE TO NEXT SHIFT FOR CONTINUITY OF CARE.
--- NOTE | 2017-08-26 19:30 | NUR ---
RN NOTES RECEIVED PATIENT IN BED WITH EYES CLOSED, EASILY AROUSABLE. AO X 3, ABLE TO MAKE NEEDS KNOWN. NO ACUTE DISTRESS NOTED. MONITORED FOR PAIN. ABDOMINAL INCISION INTACT. IV SITE INTACT, PATENT; IVF INFUSING ORDERED. SAFETY REMINDERS GIVEN. ON LOW BED WITH BILATERAL UPPER SIDE RAILS UP. CALL POOL WITHIN EASY REACH. WILL CONTINUE TO MONITOR.
[2017-08-26 20:00] VITALS: BP 115/75
[2017-08-26] MEDS ORDERED: NA PHOS,M-B/NA PHOS,DI-BA 1 EA ENEMA RC ONE ×2 (21:52→22:00)
--- NOTE | 2017-08-26 22:17 | NUR ---
RN NOTES FLEET ENEMA ORDERED AND GIVEN PER DR. SWEET'S ORDERS. CXR AND UA ORDERED PER DR. SWEET'S ORDERS TO ADDRESS ELEVATED WBC.
[2017-08-27] MEDS: LORAZEPAM INJ 2 MG/ML VIAL IV PRN ×2 (03:56→23:51)
[2017-08-27] MEDS: METOCLOPRAMIDE HCL 10 MG/2 ML VIAL IV SCH ×3 (04:01→21:01)
[2017-08-27] MEDS: IV D5/ 0.9% NACL 1,000 ML IV PRN (04:05)
--- NOTE | 2017-08-27 06:15 | NUR ---
RN NOTES PATIENT ASLEEP, EASILY AROUSABLE. RESPIRATIONS EVEN. NO SIGNS OF PAIN NOTED. DUE MEDS GIVEN WITH NO ASE NOTED. NEEDS ATTENDED. SAFETY PRECAUTIONS AND COMFORT MEASURES IN PLACE. WILL GIVE REPORT TO DAY SHIFT FOR CONTINUITY OF CARE.
[2017-08-27 08:00] VITALS: BP 132/82
[2017-08-27 08:00] LABS: EOSINOPHILS # (AUTO) 0.4 /CMM (0.0-0.7); EOSINOPHILS % (AUTO) 3.2 % (0.0-6.0); HEMATOCRIT 41 % (33-45); HEMOGLOBIN 13.9 g/dL (11.5-14.8); LYMPHOCYTES # (AUTO) 1.4 /CMM (0.8-4.8); LYMPHOCYTES % (AUTO) 12.9 % (20.0-44.0); MEAN CORPUSCULAR HEMOGLOBIN 31 PG (26.0-33.0); MEAN CORPUSCULAR HGB CONC 34 g/dl (31.0-36.0); MEAN CORPUSCULAR VOLUME 92 fL (82-100); MONOCYTES # (AUTO) 0.1 /CMM (0.1-1.30); MONOCYTES % (AUTO) 1.2 % (2.0-12.0); NEUTROPHILS # (AUTO) 9.3 /CMM (1.8-8.9); NEUTROPHILS % (AUTO) 82.7 % (43.0-81.0); PLATELET COUNT (AUTO) 257 /CMM (150-450); RDW COEFFICIENT OF VARIATION 12.6 (11.5-15.0); RED BLOOD CELL COUNT(AUTO) 4.42 MIL/uL (4.0-5.2); WHITE BLOOD COUNT (AUTO) 11.3 K/uL (4.3-11.0)
--- NOTE | 2017-08-27 08:00 | NUR ---
m/s process line operator: initial assessment received pt in bed awake, but sleepy. no c/o pain or any discomfort. bs hypoactive. continue on iv fluids, infusing well. no apparent distress noted. will continue to monitor.
[2017-08-27 08:14] LABS: CALCIUM, SERUM 8.4 mg/dL (8.5-10.1); CREATININE 0.8 mg/dL (0.6-1.3); MAGNESIUM 1.9 mg/dL (1.8-2.4); PHOSPHORUS 3.1 mg/dL (2.5-4.9); POTASSIUM 3.8 mmol/L (3.5-5.1)
[2017-08-27] MEDS: DOCUSATE SODIUM 100 MG CAPSULE PO SCH ×2 (09:00→17:00)
--- NOTE | 2017-08-27 10:10 | NUR ---
m/s lead care manager: notes incentive spirometry provided and teaching provided with return demonstration. family at bedside. clear liquid ordered per dr. jeffries.
[2017-08-27 12:01] LABS: APPEARANCE,URINE CLEAR (CLEAR); BILIRUBIN,URINE NEGATIVE (NEGATIVE); BLOOD, URINE NEGATIVE Ery/uL (NEGATIVE); COLOR,URINE YELLOW (YELLOW); KETONES,URINE 1+ (NEGATIVE); LEUKOCYTE ESTERASE ,URINE NEGATIVE (NEGATIVE); NITRITE, URINE NEGATIVE (NEGATIVE); PROTEIN,URINE NEGATIVE (NEGATIVE); UGLUCOSE NEGATIVE (NEGATIVE); UROBILINOGEN,URINE 0.2 EU/dL (0.2)
[2017-08-27 12:10] LABS: BACTERIA,URINE None seen /HPF (None Seen); RBC,URINE 0-2 /HPF (0-2); SQUAMOUS EPITHELIAL CELL,UR Few /HPF (None Seen); WBC,URINE NONE SEEN /HPF (0-3)
--- NOTE | 2017-08-27 12:10 | NUR ---
m/s outside machinist apprentice: md visit seen and examined by radha (curtis) with orders and change diet to soft. order carried out and acknowledged. pt made aware. visiting at this time. instructed to call for assistance. will continue to monitor.
[2017-08-27] MEDS: PANTOPRAZOLE 40 MG VIAL IV SCH (13:06)
--- NOTE | 2017-08-27 14:00 | NUR ---
m/s independent beauty consultant: notes pt tolerated soft diet. no c/o n/v or any discomfort at this time. pt up and about after lunch. instructed to call for assistance. will continue to monitor.
[2017-08-27 16:00] VITALS: BP 119/82
--- NOTE | 2017-08-27 18:12 | NUR ---
m/s administrative library assistant: notes pt ate the white rice, maria e. well. no c/o n/v or abdominal discomfort. instructed to call for assistance. in no apparent distress noted. will continue to monitor. needs attended.
--- NOTE | 2017-08-27 18:27 | NUR ---
m/s digital marketer: notes ambulating in hallway with abdominal binder on using fww. no apparent distress noted. will continue to monitor.
--- NOTE | 2017-08-27 19:30 | NUR ---
MS RN OPENING NOTES: PATIENT IN BED, AOX4, ON ROOM AIR, BREATHING EVEN AND UNLABORED. APPEARS CALM AND IN NO DISTRESS. DENIES PAIN AT THIS TIME, BUT DOES COMPLAIN OF MILD NAUSEA. PIV OVER LFA G22 INTACT AND PATENT TO FLUSH, WITHOUT SIGNS OF INFILTRATION. PATIENT HAS MID ABDOMINAL INCISION WITH LISSY, NO BLEEDING, SWELLING, REDNESS OR PURULENT DISCHARGE NOTED. PROVIDED FOR COMFORT AND SAFETY. BED IN LOWEST AND LOCKED POSITION, SIDERAILS UP X 2, CALL LIGHT WITHIN REACH. WILL CONT TO MONITOR.
[2017-08-27 20:00] VITALS: BP 127/74
--- NOTE | 2017-08-27 23:51 | NUR ---
RN NOTES: PATIENT COMPLAINED OF ANXIETY, ASKED FOR MEDICATION TO HELP HER RELAX. . ADMINISTERED ATIVAN 1 MG IV PRN. PROVIDED FOR SAFE AND RESTFUL ENVIRONMENT. WILL CONT TO MONITOR.
[2017-08-28] MEDS: METOCLOPRAMIDE HCL 10 MG/2 ML VIAL IV SCH ×2 (05:09→12:22)
[2017-08-28] MEDS: IV D5/ 0.9% NACL 1,000 ML IV PRN (05:10)
[2017-08-28 06:00] VITALS: BP 129/86
[2017-08-28 06:41] LABS: EOSINOPHILS # (AUTO) 0.4 /CMM (0.0-0.7); EOSINOPHILS % (AUTO) 3.8 % (0.0-6.0); HEMATOCRIT 38 % (33-45); HEMOGLOBIN 12.9 g/dL (11.5-14.8); LYMPHOCYTES # (AUTO) 1.3 /CMM (0.8-4.8); LYMPHOCYTES % (AUTO) 13.8 % (20.0-44.0); MEAN CORPUSCULAR HEMOGLOBIN 31 PG (26.0-33.0); MEAN CORPUSCULAR HGB CONC 34 g/dl (31.0-36.0); MEAN CORPUSCULAR VOLUME 91 fL (82-100); MONOCYTES # (AUTO) 0.1 /CMM (0.1-1.30); MONOCYTES % (AUTO) 1.5 % (2.0-12.0); NEUTROPHILS # (AUTO) 7.9 /CMM (1.8-8.9); NEUTROPHILS % (AUTO) 80.9 % (43.0-81.0); PLATELET COUNT (AUTO) 320 /CMM (150-450); RDW COEFFICIENT OF VARIATION 12.6 (11.5-15.0); RED BLOOD CELL COUNT(AUTO) 4.16 MIL/uL (4.0-5.2); WHITE BLOOD COUNT (AUTO) 9.8 K/uL (4.3-11.0)
[2017-08-28 06:55] LABS: CALCIUM, SERUM 8.3 mg/dL (8.5-10.1); CREATININE 0.7 mg/dL (0.6-1.3); MAGNESIUM 1.7 mg/dL (1.8-2.4); PHOSPHORUS 3.4 mg/dL (2.5-4.9); POTASSIUM 3.4 mmol/L (3.5-5.1)
--- NOTE | 2017-08-28 07:03 | NUR ---
MS RN CLOSING NOTES: PATIENT IN BED, AOX4, ON ROOM AIR, BREATHING EVEN AND UNLABORED. APPEARS CALM AND IN NO DISTRESS. DENIES PAIN OR NAUSEA AT THIS TIME. PIV OVER LFA G 22 INTACT AND INFUSING WELL WITH D5NS RUNNING AT 75 ML/HR. DUE MEDS GIVEN, PROVIDED FOR COMFORT AND SAFETY. ENCOURAGED INCENTIVE SPIROMETRY AND BREATHING EXERCISES WHILE AWAKE. BED IN LOWEST AND LOCKED POSITION, SIDERAILS UP X 2, CALL LIGHT WITHIN REACH. WILL ENDORSE TO AM RN FOR EMMANUEL.
--- NOTE | 2017-08-28 07:15 | NUR ---
MSRN OPENING NOTES. PT RECEIVED A&0X4 WORKING IN COMPUTER. PT TOLERATING ROOM AIR WITH SAO2 WNL AT 99%. PT REPORTING NO PAIN BUT STATES 'NOT FEELING GREAT'. PT WITH IVCX2. IVC AT LEFT FA INTACT AND OPERATIONAL AND AND IVC AT RFA INTACT AND SALINE FLUSHED PATENT. PT BED IN LOWEST LOCKED POSITION WITH HANDRAILSX2 AND CALL POOL WITHIN REACH. PT INCENTIVE SPIROMETRY AT BEDSIDE AND ENCOURAGED TO USE. BRIEFED ON TODAY'S POC AND IS WITHOUT CONCERN OR COMPLAINT AT THIS TIME.
[2017-08-28 08:00] VITALS: BP 131/83
--- NOTE | 2017-08-28 08:20 | NUR ---
MSRN NOTES. PT WITH NAUSEA AND EMESISX1 30ML, PRN ZOFRAN ADMINISTERED.
[2017-08-28] MEDS: ONDANSETRON HCL/PF 4 MG/2 ML VIAL IVP PRN (08:24)
[2017-08-28] MEDS: DOCUSATE SODIUM 100 MG CAPSULE PO SCH (08:28)
[2017-08-28] MEDS: PANTOPRAZOLE 40 MG VIAL IV SCH (08:28)
[2017-08-28] MEDS ORDERED: POTASSIUM CHLORIDE 20 MEQ TAB.PRT.SR PO ONE (10:00)
[2017-08-28] MEDS ORDERED: BACI500P TP (10:55)
[2017-08-28] MEDS ORDERED: LOPE2CAP40 PO (10:55)
[2017-08-28] MEDS ORDERED: HYDR-3326 PO (10:55)
[2017-08-28] MEDS ORDERED: ONDA4TAB5 PO (10:55)
[2017-08-28] MEDS ORDERED: MAGNESIUM OXIDE 400 MG TABLET PO ONE (11:30)
--- NOTE | 2017-08-28 13:00 | NUR ---
MSRN CLOSING NOTE. PT PREPARED FOR D/C PER MD. PT TOLERATING ROOM AIR WITH SAO2 WNL AT 96%. PT DENIES PAIN. PT WITH BROWN DIARRHEAX3, STOOL SAMPLE COLLECTED PER MD. PT ABDO INCISION PHOTOGRAPHED AND PT VERBALIZING UNDERSTANDING OF WOUND CARE AND ABDOMINAL BINDER USE. PT AND PT JERRI BRIEFED ON [employer] D/C PACKET CONTENTS, PRESCRIPTIONS, HHC FOLLOW UP AND S/S OF INFECTION AND ARE VERBALIZING UNDERSTANDING, INTENT AND RESOURCES TO FOLLOW POC. PT WITH ALL BELONGINGS AND DOCUMENT SIGNED. PT LEFT VIA WHEELCHAIR WITH BREAST BUFFER ESCORT. PT LEFT WITHOUT CONCERN OR COMPLAINT.
== END 2017-08-28 13:30 | disposition home health service (06) | DRG 336 ==
LOC: ER 07:48 → MED 10:19 → TELE 08-22 01:32 → ICU 08-22 03:43 → MED 08-23 10:28
PROVIDERS: ADMIT Internal Medicine; ATTEND Internal Medicine
PROC: 0DN80ZZ Release Small Intestine, Open Approach (ICD-10-PCS; principal; 2017-08-22 07:30)
DX: K56.50 Intestinal adhesions [bands], unspecified as to partial versus complete obstruction (principal); E87.2 Acidosis; K55.9 Vascular disorder of intestine, unspecified; E83.42 Hypomagnesemia; K46.0 Unspecified abdominal hernia with obstruction, without gangrene; E44.1 Mild protein-calorie malnutrition; J98.11 Atelectasis; Z68.1 Body mass index [BMI] 19.9 or less, adult; K56.7 Ileus, unspecified; E86.0 Dehydration; F41.9 Anxiety disorder, unspecified; R79.89 Other specified abnormal findings of blood chemistry; D72.829 Elevated white blood cell count, unspecified; G89.29 Other chronic pain
CPT/HCPCS: 36415; 71045-TC; 80048-TC; 80053-TC; 80076-TC; 80202-TC; 81000-TC; 83605-TC; 83690-TC; 83735-TC; 84100-TC; 84484-TC; 85025-TC; 85610-TC; 85730-TC; 86850-TC; 87081-TC; 93307-TC; A4606; A6209; A6402; C9113; J0330; J1100; J1170; J1650; J1885; J2060; J2250; J2270; J2370; J2405; J2543; J2550; J2704; J2710; J2765; J3370; J3475; J3480; J3490; J7030; J7040; J7042; J7060; J7120; Z7610